=== PATIENT | male | born 1960 | race Caucasian/White ===

== ENCOUNTER 2023-12-02 12:43 | Emergency (ER) | payer OTHER, MEDICAID ==
[~2023-12-02] VITALS: Ht 188 cm; Wt 109.1 kg
[2023-12-02 13:12] VITALS: BP 150/82; PULSE 90; RESP 18; TEMP 97.8; O2SAT 99
[2023-12-02] MEDS ORDERED: AMOX-117 PO (14:11)
[2023-12-02] MEDS: TETanus/Pertussis (Acell)/Diphther VAC/PF (Tdap-Adult) 0.5ml syringe IMVAC ONE (14:21)
[2023-12-02] MEDS: rabies immune globulin/PF 150 unit/ml inj IMVAC STA (14:50)
== END 2023-12-02 15:37 | disposition home or self-care (01) ==
LOC: ER 12:43
DX: S81.852A Open bite, left lower leg, initial encounter (principal); G89.29 Other chronic pain; W54.0XXA Bitten by dog, initial encounter; Y93.89 Activity, other specified; Y92.89 Other specified places as the place of occurrence of the external cause; Y99.8 Other external cause status
CPT/HCPCS: 73610; 90376; 90471; 90472; 90715; 99284; A6258; A6449

== ENCOUNTER 2023-12-04 07:29 | Emergency (ER) | payer OTHER, MEDICAID ==
[~2023-12-04] VITALS: Ht 188 cm; Wt 83.8 kg
[~2023-12-04 07:29] MED LIST: AMOX-117 PO
[2023-12-04 07:32] VITALS: BP 173/77; PULSE 68; RESP 18; TEMP 96; O2SAT 100
[2023-12-04] MEDS: rabies vaccine (PCEC)/PF 2.5 unit kit IMVAC ONE (08:29)
== END 2023-12-04 09:02 | disposition home or self-care (01) ==
LOC: ER 07:30
DX: Z23 Encounter for immunization (principal); T14.8XXD Other injury of unspecified body region, subsequent encounter; W54.0XXD Bitten by dog, subsequent encounter; G89.29 Other chronic pain; F17.200 Nicotine dependence, unspecified, uncomplicated
CPT/HCPCS: 90471; 90675; 99281

== ENCOUNTER 2023-12-12 11:38 | Emergency (ER) | payer OTHER, MEDICAID ==
[~2023-12-12] VITALS: Ht 188 cm; Wt 113.7 kg
[2023-12-12 11:56] VITALS: BP 161/79; PULSE 76; RESP 18; TEMP 99.2; O2SAT 98
[2023-12-12] MEDS: rabies vaccine (PCEC)/PF 2.5 unit kit IMVAC ONE (13:18)
== END 2023-12-12 13:44 | disposition home or self-care (01) ==
LOC: ER 11:38
DX: Z23 Encounter for immunization (principal); S81.852D Open bite, left lower leg, subsequent encounter; W54.0XXD Bitten by dog, subsequent encounter; G89.29 Other chronic pain
CPT/HCPCS: 90471; 90675; 99281

== ENCOUNTER 2023-12-19 12:30 | Emergency (ER) | payer OTHER, MEDICAID ==
[~2023-12-19] VITALS: Ht 190.5 cm; Wt 104.5 kg
[2023-12-19 12:30] VITALS: BP 171/81; PULSE 71; RESP 16; TEMP 98; O2SAT 94
[2023-12-19] MEDS: rabies vaccine (PCEC)/PF 2.5 unit kit IMVAC ONE (14:24)
== END 2023-12-19 14:33 | disposition home or self-care (01) ==
LOC: ER 12:30
DX: Z23 Encounter for immunization (principal); T14.8XXD Other injury of unspecified body region, subsequent encounter; G89.29 Other chronic pain; W54.0XXD Bitten by dog, subsequent encounter
CPT/HCPCS: 90471; 90675; 99281

== ENCOUNTER 2024-05-31 21:11 | Emergency (ER) | payer OTHER, MEDICAID | END 2024-05-31 21:41 | LOC: ER 21:14 | DX: G89.29 Other chronic pain (principal); F10.129 Alcohol abuse with intoxication, unspecified; Y90.9 Presence of alcohol in blood, level not specified | CPT/HCPCS: 99283 ==

== ENCOUNTER 2025-03-04 09:00 | Emergency (ER) | payer OTHER, MEDICAID ==
[~2025-03-04] VITALS: Ht 190.5 cm; Wt 107.0 kg
[2025-03-04 09:02] VITALS: BP 165/73; PULSE 68; RESP 16; TEMP 97.9; O2SAT 99
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
[2025-03-04] MEDS ORDERED: TETanus/Pertussis (Acell)/Diphther VAC/PF (Tdap-Adult) 0.5ml syringe IMVAC ONE (09:20)
[2025-03-04] MEDS ORDERED: CEPH-585 PO (09:25)
[2025-03-04] MEDS: bacitracin 15gm ointment TP ONE (10:15)
== END 2025-03-04 10:20 | disposition home or self-care (01) ==
LOC: ER 09:01
DX: L03.115 Cellulitis of right lower limb (principal); F17.200 Nicotine dependence, unspecified, uncomplicated; Z72.89 Other problems related to lifestyle
CPT/HCPCS: 99283; A6258; A6449

== ENCOUNTER 2025-08-03 14:55 | Emergency (ER) | payer OTHER, MEDICAID ==
[~2025-08-03] VITALS: Ht 190.5 cm; Wt 107.6 kg
[~2025-08-03 14:55] MED LIST changes: -AMOX-117 PO; +CEPH-585 PO
[2025-08-03 14:59] VITALS: TEMP 98.7
--- NOTE | 2025-08-03 15:16 | ELECTROCARDIOGRAPH REPORT ---
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 NAJMA Tovar Measurements Intervals Rebuck Rate: 67 P: 80 ME: 146 QRS: 35 QRSD: 115 T: 16 QT: 403 QTc: 426 Interpretive Statements Sinus rhythm Atrial premature complexes in couplets Nonspecific intraventricular conduction delay Minimal ST depression, inferior leads Electronically Signed On 08-05-2025 16:51:[address] NAJMA Tovar Please click the below link to view image of tracing.
--- NOTE | 2025-08-03 15:19 | Physician Documentation ---
History of Present Illness ~ Chief Complaint: Hypertension Stated Complaint: HIGH BLOOD PRESSURE Time Seen by MD: 15:14 Primary Medical Doctor: [facility] 65-year-old male presents to the ED with a complaint of headache shortness of breath and hypertension. He was sent here from [facility] for elevated blood pressure. States that he drinks alcohol typically throughout the day but has not today. States that he does have occasional withdrawals in the morning where he gets shaky. Patient is . He has rambling delusional speech during triage and my initial interview. He is that he is a current long time smoker but does not have a COPD diagnosis. States he does have occasional chest tightness. Patient does have elevated blood pressure in the 190 systolic in triage Patient presents with his patient advocate and girlfriend Day of Onset: Aug 03, 2025 Medication Reconciliation Allergies: Coded Allergies: No Known Allergies (Unverified , 08/03/25) Scheduled Budesonide/Formoterol Fumarate (Symbicort 80-4.5 Mcg Inhaler), 2 PUFFS INH Q12H Cephalexin*Monohydrate* (Keflex*), 1 CAP PO Q6H Lisinopril (Lisinopril), 1 TAB PO DAILY Scheduled PRN albuterol inhaler (Pro-Air Inhaler), 2 PUFFS INH Q4HPRN PRN for wheezing Past Medical History Past Medical History: Chronic Pain Past Surgical History: noncontributory Alcohol Use: Occasionally Review of Systems All Other Systems at this time: Reviewed and Negative ROS As stated above in the HPI, otherwise all systems are reviewed and negative. Physical Exam Vital Signs: Temperature: 98.7, Source: Oral, Heart Rate: 72, Respiratory Rate: 18, BP: 189/95, Pulse Oximetry: 100, Weight: 107.600 Oxygen Flow Rate: 0 Physical Exam General: Alert, no apparent distress. HEENT: PERRL, EOMI, no injection, moist mucous membranes. Red face tinged Respiratory: Diminished lung sounds bilaterally no wheezes or crackles Chest: No accessory muscle use. Cardiovascular: Regular rate and rhythm, no murmurs. Gastrointestinal: Soft, nontender, nondistended. Bowels sounds present. Extremities: Normal range of motion, no deformity. Neurologic: Oriented x4. Psychiatric: Rambling speech patterns about court proceedings Progress Results/Orders Results/Orders Orders - MAURO JACQUES NPn Treatment (08/03/25 ) Completed Orders - MAURO JACQUES DISPATCH CLERK Ipratropium/Albuterol Nebule (Ipratrop/A (08/03/25 17:15) Hydralazine Tablet (Apresoline 10mg Tabl (08/03/25 17:25) Medications Received in ER Medications (Trade) Dose Ordered Sig/Cindy Route PRN Reason Start Time Stop Time Status Last Admin Dose Admin (ipratrop/ albuterol 0.5-3(2.5) MG/3ml nebule) 3 ml ONCE ONCE NEB 08/03/25 17:15 08/03/25 17:17 DC 08/03/25 17:32 3 ML Vital Signs 08/03/25 08/03/25 08/03/25 08/03/25 14:59 17:07 17:22 17:34 Temp 98.7 Pulse 72 69 74 Resp 18 18 20 B/P (MAP) 189/95 159/98 (118) Pulse Ox 100 99 100 O2 Delivery Room Air* O2 Flow Rate 0 0 0 FiO2 21 08/03/25 17:37 Pulse 69 Resp 20 Pulse Ox 100 O2 Delivery Room Air* O2 Flow Rate 0 FiO2 21 Laboratory Tests Test 08/03/25 15:21 08/03/25 17:08 White Blood Count 9.9 Red Blood Count 4.01 L Hemoglobin 14.9 Hematocrit 43.3 Mean Corpuscular Volume 107.8 H Mean Corpuscular Hemoglobin 37.0 H Mean Corpuscular Hemoglobin Concent 34.3 Red Cell Distribution Width 14.5 Platelet Count 238 Mean Platelet Volume 7.6 Neutrophils (%) (Auto) 71.5 Lymphocytes (%) (Auto) 18.5 L Monocytes (%) (Auto) 8.9 Eosinophils (%) (Auto) 0.5 Basophils (%) (Auto) 0.6 Neutrophils # (Auto) 7.1 Lymphocytes # (Auto) 1.8 Monocytes # (Auto) 0.9 Eosinophils # (Auto) 0.0 Basophils # (Auto) 0.1 CBC Comment Sodium Level 138 Potassium Level 3.8 Chloride Level 105 Carbon Dioxide Level 29.6 Anion Gap 3 L Blood Urea Nitrogen 12 Creatinine 0.83 Estimated GFR/1.73 m2 > 90 BUN/Creatinine Ratio 14.5 Glucose Level 88 Calcium Level 8.2 L Total Bilirubin 0.5 Direct Bilirubin 0.1 Aspartate Amino Transf (AST/SGOT) 23 Alanine Aminotransferase (ALT/SGPT) 15 Alkaline Phosphatase 86 Troponin I High Sensitivity 12 10 Pro-B-Type Natriuretic Peptide 403 H Total Protein 7.4 Albumin 3.4 Globulin 4.0 Albumin/Globulin Ratio 0.9 L Lipase 39 Chemistry Comments Troponin I High Sens Percent Delta 16 Troponin I Hi Sens Absolute Change -2 Medical Decision Making Additional information obtaine: N/A Findings Patient's laboratory values were grossly unremarkable there was no signs of deviations of CO2 or bicarbonate. Do suspect that the patient's symptoms are due to an underlying undiagnosed COPD. Gave him a breathing treatment while in the ED and I advised him to make that decision whether or not to decrease or cease drinking alcohol as his have it appears to be affect in his cognitive abilities. I did offer to prescribe him blood pressure medication on short-term and [facility] also [facility] with a an inhaler in the daily maintenance inhalor Differential Dx:Considerations: Include CHF, Include HTN, essential, Include HTN, accelerated, Include HTN, malignant, Include HTN, encephalopathy, Include medical noncompliance, Include medication withdrawal, Include pulmonary edema, Include renal failure, Include -induced, Include other Departure Disposition: 01 HOME / SELF CARE / HOMELESS Impression: Primary Impression: Benign hypertension Additional Impression: COPD with Exacerbation Discharge Instructions: COPD and Physical Activity, Hypertension, Adult Referrals: NO PRIMARY CARE PROVIDER (PCP) Prescriptions Budesonide/Formoterol Fumarate (Symbicort 80-4.5 Mcg Inhaler) 80 Mcg-4.5 M cg/Actuation Hfa.aer.ad 2 PUFFS INH Q12H for 30 Days, #2 INHALER 0 Refills Prov: MAURO JACQUES NP 08/03/25 albuterol inhaler (Pro-Air Inhaler) 8.5 Gm Inhaler 2 PUFFS INH Q4HPRN PRN for wheezing for 30 Days, #18 GM Prov: MAURO JACQUES NP 08/03/25 Lisinopril (Lisinopril) 20 Mg Tablet 1 TAB PO DAILY for 30 Days, #30 TAB Prov: MAURO JACQUES NP 08/03/25 Education Educated: Patient Educated regarding: diagnosis Signature Scribe Signature: 6 Attestation: Scribed for Mauro Jacques Health Safety And Environment Manager by Mauro Mckeon NP . 08/03/25 15:20 MAURO JACQUES NP Aug 03, 2025 15:19
[2025-08-03 15:37] LABS: MEAN PLATELET VOLUME 7.6 FL (7.4-10.4); RED CELL DISTRIBUTION WIDTH 14.5 % (11.5-14.5)
--- NOTE | 2025-08-03 15:50 | RADIOLOGY REPORT ---
CHEST RADIOGRAPH Indication: CP Technique: Single frontal view of the chest was obtained. Comparison: None Findings: Pulmonary vascular congestion. No significant pleural effusion. No pneumothorax. Nonenlarged cardiomediastinal silhouette. IMPRESSION: Pulmonary vascular congestion.
[2025-08-03 15:52] LABS: CREATININE 0.83 MG/DL (0.60-1.10); TOTAL CARBON DIOXIDE 29.6 MMOL/L (24-32); eCRCL 107 ML/MIN; eGFR > 90 ML/MIN
[2025-08-03 16:01] LABS: PRO BRAIN NATRIURETIC PEPTIDE 403 PG/ML (0-125)
[2025-08-03] MEDS ORDERED: LISI20TA28 PO (17:30)
[2025-08-03] MEDS ORDERED: ALBU8HFA INH (17:30)
[2025-08-03] MEDS ORDERED: BUDE10.22 INH (17:30)
[2025-08-03] MEDS: ipratropium/albuterol 3ml nebule NEB ONE (17:32)
[2025-08-03 17:34] VITALS: PULSE 74; RESP 20; O2SAT 100
[2025-08-03 17:37] VITALS: PULSE 69; RESP 20; O2SAT 100
[2025-08-03 18:39] VITALS: BP 173/90; PULSE 86; RESP 16; O2SAT 98
== END 2025-08-03 18:41 | disposition home or self-care (01) ==
LOC: ER 14:55
DX: J44.1 Chronic obstructive pulmonary disease with (acute) exacerbation (principal); I10 Essential (primary) hypertension; G89.29 Other chronic pain; F17.200 Nicotine dependence, unspecified, uncomplicated; Z79.899 Other long term (current) drug therapy; Z72.89 Other problems related to lifestyle
CPT/HCPCS: 36415; 71045; 80048; 80076; 83690; 83880; 84484; 85025; 93005; 94640; 94760; 99285